=== PATIENT | male | born 1955 | race Caucasian/White ===

== ENCOUNTER 2017-09-25 06:59 | Emergency (ER) | payer BC ==
[2017-09-25 07:10] VITALS: RESP 16
[2017-09-25] MEDS ORDERED: NS 1,000 ML IV ONE (07:37)
--- NOTE | 2017-09-25 07:44 | CPEKG ---
Heart Rate: 54 RR Interval: 1111 P-R Interval: 144 QRSD Interval: 84 QT Interval: 460 QTC Interval: 436 P Saltese: 61 QRS Saltese: 12 T Wave Saltese: 13 EKG Severity - NORMAL ECG - EKG Impression: SINUS RHYTHM Electronically Signed By: Randy Castro 25-Sep-2017 07:46:07
--- NOTE | 2017-09-25 07:44 | EDPHY ---
H & P Time Seen by Provider: 09/25/17 07:12 HPI/ROS: CHIEF COMPLAINT: Dizziness HISTORY OF PRESENT ILLNESS: This 62-year-old man has been having left groin pain since June when he raised his left leg to tie his shoe. This pain has been intermittent ever since and is located in the inside of his proximal left thigh and is worse with walking and better when he stops. When he stops it does not go back to normal right away, but takes while. He had spine surgery 4 years ago and has had bilateral foot numbness since then which is not dramatically changed from baseline. He had decreased strength and reflexes in his left leg prior to surgery and that is only partially recovered. He does not have associated testicular or urinary symptoms. The patient this morning at 5:00 a.m. when he awoke had worse left groin pain which she felt radiated up into the the left side of his abdomen causing pressure, and this was associated with him feeling dizzy and lightheaded for about 15 min now that is completely gone. This was not associated with chest pain or shortness of breath and he does not think that he is in atrial fibrillation now. He is on Xarelto for the last 2 years for atrial fibrillation and has not missed any recent doses. REVIEW OF SYSTEMS: Eye: no change in vision ENT: no sore throat Cardiac: no chest pain or syncope Pulmonary: no cough or SOB Abdomen: no vomiting, diarrhea, abdominal pain Musculoskeletal: HPI Skin: no rash or bruising Neuro: no headache or new weakness or numbness in extremities Constitutional: no fever : no urinary symptoms A comprehensive 10 point review of systems is otherwise negative aside from elements mentioned in the history of present illness. PAST MEDICAL HISTORY: Lumbar fusion by Dr. Obrien 4 years ago, atrial fibrillation with 2 ablations on Xarelto Social history: General Appearance: Alert and conversant, cooperative. Eyes: No scleral icterus. ENT, Mouth: Normal mucous membranes. Respiratory: Normal respiratory effort, breath sounds equal, lungs are clear to auscultation. Cardiovascular: Regular rate and rhythm. Gastrointestinal: Abdomen is soft and non tender. Normal bowel sounds, not distended. Normal male . No evidence of left inguinal hernia or tenderness. Normal left femoral pulse. No pulsatile abdominal masses. Neurological: Alert, face symmetric, ambulatory. Patient has negative straight leg raising bilaterally. Toes are downgoing bilaterally and no clonus. 5/5 lower extremity strength of both sides both flex and extending the knee and dorsiflexion and plantar flexion of the foot. 2+ right patellar reflex and 1+ left patellar reflex. Sensation intact to light touch bilaterally. Skin: Warm and dry, no rashes. No bruising or zoster on the left thigh. Musculoskeletal: Patient does not have swelling or tenderness of the left thigh or groin region. Compartments are soft. No bony tenderness. No hip pain with rotation or axial loading on the left. Psychiatric: Not agitated. Emergency Department course/MDM: Patient is concerned about bleeding into his thigh, ultrasound will be ordered. I think DVT would be unlikely as he is on Xarelto. His abdominal exam is benign today and I think acute surgical abdominal process would be unlikely. Patient was lightheaded and dizzy but is in sinus rhythm now and did not actually have syncope. I think cardiac dysrhythmia is unlikely. He does not have new neurologic signs or symptoms to suggest he has spinal epidural hematoma. When I questioned him on his lower extremity neurologic exam it seems like where he is today is his baseline. CBC and chemistry ordered; noted is normal at 825. Plan for discharge with primary care follow-up, groin strain still most likely diagnosis. 832: Ultrasound shows no evidence of fluid collection or hematoma, Matt Smoking Status: Never smoked Constitutional: Initial Vital Signs Temperature (C) 36.5 C 09/25/17 07:07 Heart Rate 57 L 09/25/17 07:07 Respiratory Rate 16 09/25/17 07:07 Blood Pressure 159/96 H 09/25/17 07:07 O2 Sat (%) 98 09/25/17 07:07 O2 Delivery Mode Room Air Allergies/Adverse Reactions: Penicillins Allergy (Unknown, Verified 09/25/17 07:05) Sulfa (Sulfonamide Antibiotics) Allergy (Verified 09/25/17 07:05) Home Medications: Medication Instructions Recorded Cholecalciferol Vit D3 [Vitamin D3 1,000 units PO Q2D 03/31/14 (*)] Ergocalciferol [Vitamin D2 (*)] 50,000 unit PO Q14D 03/31/14 Herbals/Supplements -Info Only 1 ea PO DAILY 03/31/14 Psyllium Husk (with Sugar) 1 each PO HS PRN 04/01/14 [Metamucil Packet] Rivaroxaban [Xarelto] 20 mg PO DAILY@1800 #30 tab 04/06/14 Sotalol HCl [Betapace 80 MG (*)] 120 mg PO BID@ #60 tab 06/26/14 Medical Decision Making - Diagnostics EKG Interpretation: 12-lead EKG interpreted by me; official reading is in trace master. My interpretation is sinus rhythm rate 54 normal intervals otherwise normal EKG. Differential Diagnosis: Differential considered including but not limited to bleeding, dysrhythmia, DVT or PE, spinal epidural hematoma, retroperitoneal hematoma, muscle strain in his groin - Data Points Laboratory Results: Laboratory Results 09/25/17 07:53 09/25/17 07:53 09/25/17 09/25/17 07:53 07:53 WBC 6.30 10^3/uL 10^3/uL (3.80-9.50) RBC 4.79 10^6/uL 10^6/uL (4.40-6.38) Hgb 15.0 g/dL g/dL (13.7-17.5) Hct 43.4 % % (40.0-51.0) MCV 90.6 fL fL (81.5-99.8) MCH 31.3 pg pg (27.9-34.1) MCHC 34.6 g/dL g/dL (32.4-36.7) RDW 13.0 % % (11.5-15.2) Plt Count 251 10^3/uL 10^3/uL (150-400) MPV 10.6 fL fL (8.7-11.7) Neut % (Auto) 66.0 % % (39.3-74.2) Lymph % (Auto) 20.8 % % (15.0-45.0) [place] % (Auto) 9.7 % % (4.5-13.0) Eos % (Auto) 2.9 % % (0.6-7.6) Baso % (Auto) 0.3 % % (0.3-1.7) Nucleat RBC Rel Count 0.0 % % (0.0-0.2) Absolute Neuts (auto) 4.16 10^3/uL 10^3/uL (1.70-6.50) Absolute Lymphs (auto) 1.31 10^3/uL 10^3/uL (1.00-3.00) Absolute Monos (auto) 0.61 10^3/uL 10^3/uL (0.30-0.80) Absolute Eos (auto) 0.18 10^3/uL 10^3/uL (0.03-0.40) Absolute Basos (auto) 0.02 10^3/uL 10^3/uL (0.02-0.10) Absolute Nucleated RBC 0.00 10^3/uL 10^3/uL (0-0.01) Immature Gran % 0.3 % % (0.0-1.1) Immature Gran # 0.02 10^3/uL 10^3/uL (0.00-0.10) Sodium 139 mEq/L mEq/L (134-144) Potassium 4.5 mEq/L mEq/L (3.5-5.2) Chloride 102 mEq/L mEq/L (97-110) Carbon Dioxide 27 mEq/l mEq/l (22-31) Anion Gap 10 mEq/L mEq/L (8-16) BUN 14 mg/dL mg/dL (7-23) Creatinine 0.9 mg/dL mg/dL (0.7-1.3) Estimated GFR > 60 Glucose 89 mg/dL mg/dL (70-100) Calcium 9.6 mg/dL mg/dL (8.5-10.4) Medications Given: Discontinued Medications Sodium Chloride (Ns) 1,000 mls @ 0 mls/hr IV EDNOW ONE; Wide Open PRN Reason: Protocol Stop: 09/25/17 07:38 Last Admin: 09/25/17 08:00 Dose: 1,000 mls Departure - Departure Disposition: Home, Routine, Self-Care Clinical Impression: Near syncope Strain of left inguinal muscle Qualifiers: Encounter type: initial encounter Qualified Code(s): S39.013A - Strain of muscle, fascia and tendon of pelvis, initial encounter Condition: Good Instructions: Groin Strain (ED) Additional Instructions: Please return immediately for worsening symptoms. Follow-up with your doctor next week for appropriate referral for your left groin of it is still symptomatic. Referrals: ABDIEL ALBERT [Primary Care Provider] - As per Instructions
[2017-09-25 08:02] LABS: PLATELET COUNT 251 10^3/uL (150-400)
[2017-09-25 08:41] VITALS: BP 138/93; PULSE 55; TEMP 97.9; O2SAT 96
== END 2017-09-25 08:40 | disposition home or self-care (01) ==
DX: S39.013A Strain of muscle, fascia and tendon of pelvis, initial encounter (principal); R55 Syncope and collapse; E86.9 Volume depletion, unspecified; Z79.01 Long term (current) use of anticoagulants; X58.XXXA Exposure to other specified factors, initial encounter